=== PATIENT | female | born 1995 | race Caucasian/White ===

== ENCOUNTER 2021-12-03 08:43 | Emergency (ER) | payer BC, MEDICAID, SELFPAY ==
[2021-12-03 09:20] VITALS: BP 119/64; PULSE 66; RESP 16; TEMP 36.8; O2SAT 99
--- NOTE | 2021-12-03 10:13 | ED.GENADULT ---
HPI - General Adult General Chief complaint: Unspecified Stated complaint: swollen upper lip Time Seen by Provider: 12/03/21 10:13 Source: patient Mode of arrival: ambulatory Limitations: no limitations History of Present Illness HPI narrative: 26-year-old female presents with swelling and pain to right upper lip. States that 2 days ago she had a pimple above upper lip that she popped. Reports yesterday she had increased swelling and pain. Stuck a needle into the pimple to drain it more. Today woke up with significant pain and pressure, worsening of swelling and redness. Denies fever chills. Patient is tearful due to pain. All systems reviewed and negative except as noted above. Related Data Home Medications Medication Instructions Recorded Confirmed fluoxetine 10 mg capsule cap 12/03/21 valacyclovir 1 gram tablet tablet 12/03/21 Allergies Allergy/AdvReac Type Severity Reaction Status Date / Time No Known Allergies Allergy Unknown Unverified 01/22/15 00:33 Review of Systems Review of Systems: CONSTITUTIONAL: Denies fever, chills, or sweats. EYES: Denies visual changes, redness, or discharge. ENT: Denies rhinorrhea, congestion, sore throat, or otalgia. CARDIOVASCULAR: Denies chest pain, palpitations, or edema. RESPIRATORY: Denies cough or dyspnea. GASTROINTESTINAL: Denies abdominal pain, nausea, vomiting, or diarrhea. GENITOURINARY: Denies dysuria or hematuria. SKIN: Denies rash or itching. Reports swelling, redness, pain to right side of upper lip. MUSCULOSKELETAL: Denies back pain, joint pain, or myalgia. NEUROLOGIC: Denies headache, numbness, or weakness. PSYCHIATRIC: Denies anxiety or depression. All other systems reviewed are negative, except as documented in HPI. [facility] Family History Family History (Updated 01/27/16 @ 23:19 by DOCTOR UNKNOWN) Father Hypertension Sibling Family history of type 1 diabetes mellitus Other Cerebrovascular accident Family history of congenital heart disease Family history of malignant neoplasm of breast Family history of type 2 diabetes mellitus Social History Social History Smoking status: Heavy tobacco smoker Alcohol intake: never Substance use type: marijuana Comments At time of signature, agree with nursing past medical, surgical, social and family history. There is no relevant family history pertinent to the presenting complaint. Exam Narrative: GENERAL: This is a well-nourished, well-developed patient, in no apparent distress. HEAD: normocephalic, atraumatic. EYES: PERRL. Sclera clear/white. Vision is grossly intact. EARS: External ears normal NOSE: External nose normal NECK: Neck supple, non-tender without lymphadenopathy, masses or thyromegaly. CARDIOVASCULAR: Regular rate and rhythm without murmurs, gallops, or rubs. RESPIRATORY: Clear to auscultation. Breath sounds equal bilaterally. No wheezes, rales, or rhonchi. SKIN: warm, Dry, intact with no suspicious lesions or rash, good texture and turgor. Swelling to right side of upper lip, erythematous, tender on palpation. There is no fluctuance concerning for abscess. Scabbed pimple noted to the center of swelling. NEURO: awake, alert, and oriented to person, place and time. There were no obvious focal neurologic abnormalities. EXTREMITIES: Normal range of motion to all extremities. HENMT: Head images: 1. swelling and tenderness Course Course Level of Care: Express Care Visit Vital Signs Vital signs: Vital Signs Temperature 36.8 C 12/03/21 09:20 Pulse Rate 66 12/03/21 09:20 Respiratory Rate 16 12/03/21 09:20 Blood Pressure 119/64 12/03/21 09:20 Pulse Oximetry 99 12/03/21 09:20 Oxygen Delivery Room Air 12/03/21 09:20 Temperature 36.8 C 12/03/21 09:20 Pulse Rate 66 12/03/21 09:20 Respiratory Rate 16 12/03/21 09:20 Blood Pressure 119/64 12/03/21 09:20 Pulse Oximetry 99 12/03/21 09:20 Oxygen Delivery Room Air 12/03/21 09:2
[2021-12-03] MEDS: KETOROLAC (*BKC) 60 MG/2 ML VIAL IM (10:36)
== END 2021-12-03 10:52 | disposition home or self-care (01) ==
PROVIDERS: Emergency Provider Nurse Practitioner Family; PCP Nurse Practitioner Family
DX: K13.0 Diseases of lips (principal); F17.200 Nicotine dependence, unspecified, uncomplicated
CPT/HCPCS: 96372; 99213; G0463; J1885

== ENCOUNTER 2022-07-02 08:26 | Emergency (ER) | payer BC, MEDICAID, SELFPAY ==
--- NOTE | 2022-07-02 08:28 | ED.SKABFB ---
HPI - Skin/Abscess/Foreign Bdy General Chief complaint: Skin/Abscess/Foreign Body Stated complaint: Rash Time Seen by Provider: 07/02/22 08:35 Source: patient, RN notes reviewed and old records reviewed Mode of arrival: ambulatory Limitations: no limitations History of Present Illness HPI narrative: 26-year-old female presents to the [facility] with swelling and a scabbed area to the left nosril. Patient reports 3-4 days ago it started draining pus. Reports it to be greenish yellow. Has a history of abscesses. Mild swelling noted to the area without increased erythema. No surrounding swelling or erythema. No fluctuance to the area. Patient states just prior to arrival it was draining yellow. MD complaint: rash Onset (ago): day(s) (3-4 ) Related Data Home Medications Medication Instructions Recorded Confirmed fluoxetine 10 mg capsule 1 cap PO DAILY 12/03/21 07/02/22 Allergies Allergy/AdvReac Type Severity Reaction Status Date / Time No Known Allergies Allergy Unknown Verified 07/02/22 08:31 Review of Systems Review of Systems: All systems reviewed & are unremarkable except as noted in HPI and below Constitutional: Constitutional: Reports no additional constitutional complaints Eyes: Eyes: Reports no additional eye complaints ENT: Reports system reviewed and no additional complaints, except as documented Cardiovascular: Cardiovascular: Reports no additional cardiovascular complaints, Denies chest pain and Denies dyspnea Respiratory: Respiratory: Reports no additional respiratory complaints, Denies chest congestion, Denies cough and Denies dyspnea Gastrointestinal: Gastrointestinal: Reports no additional gastrointestinal complaints, Denies abdominal pain, Denies nausea and Denies vomiting Musculoskeletal: Musculoskeletal: Reports no additional musculoskeletal complaints Integumentary/Breasts: Skin/Breast: Reports as per HPI and Reports rash Neurologic: Reports system reviewed and no additional complaints, except as documented Psychiatric: Psychiatric: Reports no additional psychiatric complaints Allergic/Immunologic: Allergic/Immunologic: Reports no additional allergic/immunologic complaints [facility] Past Medical History Medical History (Updated 07/02/22 @ 08:46 by Marleni Hendricks APRN) Anxiety and depression Family History Family History Father Hypertension Sibling Family history of type 1 diabetes mellitus Other Cerebrovascular accident Family history of congenital heart disease Family history of malignant neoplasm of breast Family history of type 2 diabetes mellitus Social History Social History (Reviewed 07/02/22 @ 08:28 by DEION Mondragon Smoking status: Heavy tobacco smoker Alcohol intake: never Substance use type: marijuana Comments At the time of my signature, I reviewed and agree with the nursing past medical, surgical, social, and family history. There is no relevant family history pertinent to the patient complaint. Exam Const: General: cooperative, healthy appearing, comfortable, no acute distress, well developed, alert and well nourished Nutritional Appearance: well nourished Orientation/consciousness: patient oriented x3 Limitations: no limitations HENMT: Head: normal to inspection Ears: hearing grossly normal bilaterally and external ears normal Face/Nose/Sinus: Normal external nose present, Normal nares present, Normal nasal mucous membranes and turbinates present and normal facial exam Nose image: 1. 0.5 cm scabbed area, tender to touch. No fluctuance, no surrounding erythema. Mildly swollen. No erythema in surrounding tissue. No drainage noted at this time. Face and sinus: normal facial exam Mouth: Yes Normal oral and palatal mucosa present, Yes lip normal and Yes moist mucous membranes Throat: posterior oropharynx normal and uvula midline Eyes: General: appearance normal, both eyes and al
[2022-07-02 08:36] VITALS: BP 116/64; PULSE 69; RESP 16; TEMP 37.2; O2SAT 99
== END 2022-07-02 08:52 | disposition home or self-care (01) ==
PROVIDERS: Emergency Provider Nurse Practitioner; PCP Nurse Practitioner Family
DX: J34.0 Abscess, furuncle and carbuncle of nose (principal); F17.290 Nicotine dependence, other tobacco product, uncomplicated; F41.9 Anxiety disorder, unspecified; F32.A Depression, unspecified
CPT/HCPCS: 87070; 87147; 87181; 87186; 87205; 99213; G0463